=== PATIENT | male | born 1990 | race Caucasian/White ===

== ENCOUNTER 2017-08-28 23:24 | Emergency (ER) | payer OTHER ==
[~2017-08-28] VITALS: Ht 170.2 cm; Wt 58.5 kg
[2017-08-28 23:28] VITALS: Ht 170.2 cm; Wt 58.5 kg
[2017-08-29 00:54] VITALS: BP 131/84
== END 2017-08-29 01:00 | disposition home or self-care (01) ==
LOC: ED 23:24
DX: K40.90 Unilateral inguinal hernia, without obstruction or gangrene, not specified as recurrent (principal)